=== PATIENT | male | born 1970 | race Caucasian/White ===

== ENCOUNTER 2024-01-01 14:05 | Outpatient (CLI) | payer BC, SELFPAY ==
--- NOTE | 2024-01-04 12:40 | WPDHOLTEREM ---
Holter/Event Monitor Holter/Event Monitor Date of procedure: 01/01/24 Holter/Event Procedure: 24 Hr Holter Monitor Indications: Cardiac arrhythmia Conclusion: 1. 24 hour holter monitor on 01/01/24. 2. Predominant rhythm is sinus rhythm. HR range 44-118 bpm; average HR 74 bpm. HR at 44 bpm was at 03:09. 3. There are 196 premature supraventricular complexes, 8 supraventricular couplets, and 3 supraventricular trigeminy. There are 3 episodes of atrial tachycardia, fastest at 146 bpm and longest lasting 13 beats. 4. There are 62 premature ventricular complexes. No ventricular tachycardia. 5. No sinoatrial or atrioventricular blocks. No significant pauses greater than 2 seconds. 6. No symptoms available for correlation.
== END 2024-01-01 14:06 | disposition home or self-care (01) ==
PROVIDERS: PCP Nurse Practitioner Family; Visit Provider Nurse Practitioner Family
DX: I49.9 Cardiac arrhythmia, unspecified (principal)
CPT/HCPCS: 93225; 93226

== ENCOUNTER 2025-09-04 10:41 | Outpatient (CLI) | payer BC, SELFPAY ==
--- NOTE | ~2025-09-04 | MR_ITS ---
EXAM/PROCEDURE: MR humerus RT wo con HISTORY: S46.201A - Unspecified injury of muscle, fascia and tendo... COMPARISON: None available. TECHNIQUE: Multiplanar MRI of the right humerus without contrast FINDINGS: The long head of the biceps tendon is ruptured or torn and retracted approximately 10.6 cm with the thickened retracted portion seen on image 14 series 7. There is also prominence in the long head portion of the biceps which is slightly hyperintense or edematous appearing in the cephalad portion of the muscle as seen on image 29 series 5. Mild edematous changes present along the superior labral area of expected attachment of the long head tendon but no clear labral injury seen. The remaining muscles about the humerus including short head biceps appear normal. No fracture subluxation or dislocation. 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 No full-thickness retracted rotator cuff tear seen. No definite labral tear seen on this nonarthrographic series. Spinoglenoid recess and suprascapular notch regions appear normal. IMPRESSION: Completely torn long head of the biceps tendon with approximately 10.6 cm of retraction. At least mild strain involving the myotendinous region or cephalad portion of the long head biceps muscle belly. Reviewed, dictated and finalized at location A. [employer] IMPRESSION: Completely torn long head of the biceps tendon with approximately 1 0.6 cm of retraction. At least mild strain involving the myotendinous region or cephalad portion of the long head biceps muscle belly.
== END 2025-09-04 10:42 | disposition home or self-care (01) ==
PROVIDERS: PCP Nurse Practitioner Family; Visit Provider Nurse Practitioner Family
DX: S46.111A Strain of muscle, fascia and tendon of long head of biceps, right arm, initial encounter (principal); X58.XXXA Exposure to other specified factors, initial encounter
CPT/HCPCS: 73218